=== PATIENT | male | born 1990 | race Caucasian/White ===

== ENCOUNTER → 2022-01-25 17:23 | Outpatient (BNVA) | payer OTHER, SELFPAY | PROVIDERS: Visit Provider Nurse Practitioner Family | DX: E66.9 Obesity, unspecified (principal); R73.9 Hyperglycemia, unspecified; R10.12 Left upper quadrant pain; K21.9 Gastro-esophageal reflux disease without esophagitis; R10.812 Left upper quadrant abdominal tenderness; R19.8 Other specified symptoms and signs involving the digestive system and abdomen; R31.9 Hematuria, unspecified; J30.2 Other seasonal allergic rhinitis; M25.511 Pain in right shoulder; M25.611 Stiffness of right shoulder, not elsewhere classified; Z76.89 Persons encountering health services in other specified circumstances | CPT/HCPCS: 80053; 80061; 82150; 83036; 83690; 84443 ==

== ENCOUNTER → 2022-04-04 13:58 | Outpatient (BNVA) | payer OTHER, SELFPAY | PROVIDERS: Visit Provider Nurse Practitioner Family | DX: J32.9 Chronic sinusitis, unspecified (principal); N52.9 Male erectile dysfunction, unspecified | CPT/HCPCS: 80053; 84402; 84403; 85025 ==